=== PATIENT | male | born 1985 | race Caucasian/White ===

== ENCOUNTER 2018-07-29 01:12 | Emergency (ER) | payer BC ==
[2018-07-29 01:31] VITALS: BP 138/85; PULSE 91; RESP 18; TEMP 98.1; O2SAT 100
--- NOTE | 2018-07-29 01:55 | ED PDOC ---
HPI: General Adult Time Seen by Provider: 07/29/18 01:33 Chief Complaint (Nursing): GI Problem Chief Complaint (Provider): GI Problem History Per: Patient History/Exam Limitations: no limitations Onset/Duration Of Symptoms: Hrs Additional Complaint(s): Sterling Jones is a 32 year old male who is presenting to the ED for evaluation of blood in stool. Patient states that tonight he saw some bright red blood while he was wiping on the toilet and saw some in the toilet bowel as well. He states that he was unsure of what to do so he decided to come to the ED. Patient denies any pain, lightheadedness, dizziness, pallor of skin, feeling faint, or any other medical complaints. PMD: Imani Past Medical History Reviewed: Historical Data, Nursing Documentation, Vital Signs Vital Signs: Last Vital Signs Temp 98.1 F 07/29/18 01:27 Pulse 91 H 07/29/18 01:27 Resp 18 07/29/18 01:27 BP 138/85 07/29/18 01:27 Pulse Ox 100 07/29/18 01:27 - Medical History PMH: No Chronic Diseases - Surgical History Surgical History: No Surg Hx - Family History Family History: States: Unknown Family Hx - Social History Current smoker - smoking cessation education provided: No Alcohol: None Drugs: Denies - Home Medications Home Medications: Ambulatory Orders Medication Instructions Recorded Phenylephrine HCl/[place] Butter 1 each RC DAILY #4 supp.rect 07/29/18 [Preparation H Suppository] - Allergies Allergies/Adverse Reactions: Allergies Allergy/AdvReac Type Severity Reaction Status Date / Time apple Allergy RASH Verified 07/29/18 01:27 jane Allergy RASH Verified 07/29/18 01:27 Review of Systems ROS Statement: Except As Marked, All Systems Reviewed And Found Negative Gastrointestinal: Positive for: Other (blood in stool). Negative for: Rectal Pain Skin: Negative for: Other (pallor) Neurological: Negative for: Dizziness, Other (lightheadedness) Physical Exam - Reviewed Nursing Documentation Reviewed: Yes Vital Signs Reviewed: Yes - Physical Exam Appears: Positive for: Well, Non-toxic, No Acute Distress Head Exam: Positive for: ATRAUMATIC, NORMAL INSPECTION, NORMOCEPHALIC Skin: Positive for: Normal Color, Warm, DRY Eye Exam: Positive for: EOMI, Normal appearance, PERRL ENT: Positive for: Normal ENT Inspection Neck: Positive for: Normal, Painless ROM Cardiovascular/Chest: Positive for: Regular Rate, Rhythm. Negative for: Murmur Respiratory: Positive for: Normal Breath Sounds. Negative for: Respiratory Distress Gastrointestinal/Abdominal: Positive for: Normal Exam, Soft. Negative for: Tenderness Back: Positive for: Normal Inspection Rectal: Positive for: Other (stool is normal colored: Possible palpable internal hemorrhoid at 3 oclock) Extremity: Positive for: Normal ROM. Negative for: Deformity, Swelling Neurologic/Psych: Positive for: Alert, Oriented. Negative for: Motor/Sensory Deficits - ECG O2 Sat by Pulse Oximetry: 100 (RA) Pulse Ox Interpretation: Normal Medical Decision Making Medical Decision Making: Time: 1:33 A/P: 32 year old male with blood in stool --Patient advised to follow up at [place] for non-emergent rectal bleeding --He is very well appearing and stable for discharge Scribe Attestation: Documented by Kenzie Esquivel, acting as a scribe for Rajinder Black MD. Provider Scribe Attestation: All medical record entries made by the Scribe were at my direction and personally dictated by me. I have reviewed the chart and agree that the record accurately reflects my personal performance of the history, physical exam, medical decision making, and the department course for this patient. I have also personally directed, reviewed, and agree with the discharge instructions and disposition. Disposition - Clinical Impression Clinical Impression: Rectal bleed - Disposition Referrals: [facility] [Provider Group] Disposition: Routine/Home Disposition Time: 01:30 Condition: STABLE Prescriptions: Phenylephrine HCl/[place] Butter [Preparation H Suppository] 1 each RC DAILY #4 supp.rect Instructions: Bloody Stools, Adult (DC) Forms: [employer] (Spanish)
== END 2018-07-29 01:55 | disposition home or self-care (01) ==
LOC: H.ER 01:12
DX: K62.5 Hemorrhage of anus and rectum (principal)